=== PATIENT | female | born 1990 | race Caucasian/White ===

== ENCOUNTER 2020-11-24 19:24 | Emergency (ER) | payer OTHER ==
[~2020-11-24] VITALS: Ht 160 cm; Wt 54.4 kg
--- NOTE | 2020-11-24 22:13 | NUR ---
PT AMBULATED TO ER WITH C/O CP THAT STARTED 5 DAYS AGO. A/O X4, NO SOB OR LABORED BREATHING, AFEBRILE. NO N/V. CLEAR SPEECH, COMPLETE SENTENCES. NO DEFICITS ON ANY EXTREMITIES. DR. VITALE AT BEDSIDE, MSE IN PROGRESS.
--- NOTE | 2020-11-24 22:30 | NUR ---
LAB AT BEDSIDE.
[2020-11-24 22:53] LABS: HEMATOCRIT 41.7 % (31.2-41.9); MEAN CORPUSCULAR HEMOGLOBIN 30.5 uug (24.7-32.8); MEAN CORPUSCULAR VOLUME 91.2 fL (75.5-95.3); PLATELET COUNT (AUTO) 217 K/uL (179-408)
[2020-11-24 23:04] LABS: ALANINE AMINOTRANSFERASE 15 U/L (14-59); ALKALINE PHOSPHATASE 69 U/L (50-136); ASPARTATE AMINOTRANSFERASE 15 U/L (15-37); BILIRUBIN,DIRECT < 0.1 mg/dL (0.0-0.2); BILIRUBIN,TOTAL 0.6 mg/dL (0.2-1.0); CARBON DIOXIDE 30 mmol/L (21-32); CHLORIDE 106 mmol/L (98-107); CREATININE 0.7 mg/dL (0.6-1.3); GLUCOSE 86 mg/dL (74-106); POTASSIUM 3.9 mmol/L (3.5-5.1); TOTAL PROTEIN, SERUM 7.6 g/dL (6.4-8.2); UREA NITROGEN, BLOOD 7 mg/dL (7-18)
[2020-11-24] MEDS ORDERED: LORA0.5T48 GT (23:37)
--- NOTE | 2020-11-24 23:51 | NUR ---
Patient discharged to home in stable condition. A/O x4, denies any pain/discomfort upon discharge. Written and verbal after care instructions given. Patient verbalizes understanding of instructions. Stressed follow up or return to ER for worsening s/s. Steady gait.
[2020-11-24 23:52] VITALS: BP 110/68
== END 2020-11-24 23:53 | disposition home or self-care (01) ==
LOC: ER 19:24
DX: R00.2 Palpitations (principal); F41.9 Anxiety disorder, unspecified; R00.1 Bradycardia, unspecified
CPT/HCPCS: 36415; 83735; 85025; A4663

== ENCOUNTER 2024-02-06 16:05 | Emergency (ER) | payer OTHER ==
[~2024-02-06] VITALS: Ht 160 cm; Wt 54.4 kg
[~2024-02-06 16:05] MED LIST: LORA0.5T48 GT
[2024-02-06 16:26] LABS: BASOPHILS # (AUTO) 0.1 K/UL (0.0-0.2); BASOPHILS % (AUTO) 1.4 % (0.0-2.0); EOSINOPHILS # (AUTO) 0.2 K/uL (0.0-0.7); EOSINOPHILS % (AUTO) 3.5 % (0.0-7.0); HEMATOCRIT 39.5 % (31.2-41.9); HEMOGLOBIN 13.3 g/dL (10.9-14.3); LYMPHOCYTES # (AUTO) 1.6 K/uL (0.8-4.8); LYMPHOCYTES % (AUTO) 32.5 % (20.5-51.5); MEAN CORPUSCULAR HEMOGLOBIN 30.7 uug (24.7-32.8); MEAN CORPUSCULAR HGB CONC 34 g/dL (32.3-35.6); MEAN CORPUSCULAR VOLUME 91.3 fL (75.5-95.3); MONOCYTES # (AUTO) 0.4 K/uL (0.1-1.30); MONOCYTES % (AUTO) 8.7 % (0.0-11.0); NEUTROPHILS # (AUTO) 2.7 K/uL (1.8-8.9); NEUTROPHILS % (AUTO) 53.9 % (38.5-71.5); PLATELET COUNT (AUTO) 230 K/uL (179-408); RED BLOOD CELL COUNT(AUTO) 4.33 MIL/uL (3.63-4.92); RED CELL DISTRIBUTION WIDTH 13.7 % (12.3-17.7); WHITE BLOOD COUNT (AUTO) 4.9 K/uL (3.8-11.8)
[2024-02-06 16:42] LABS: CALCIUM 9.2 mg/dL (8.5-10.1); CARBON DIOXIDE 26 mmol/L (21-32); CHLORIDE 105 mmol/L (98-107); CREATININE 0.7 mg/dL (0.6-1.3); GLUCOSE 97 mg/dL (74-106); POTASSIUM 3.9 mmol/L (3.5-5.1); SODIUM SERUM 140 mmol/L (136-145); UREA NITROGEN, BLOOD 9 mg/dL (7-18)
[2024-02-06 16:44] LABS: DIFFERENTIAL COMMENT 1
[2024-02-06] MEDS ORDERED: LIDOCAINE 5% PATCH TD ONE (16:47)
[2024-02-06] MEDS ORDERED: KETOROLAC TROMETHAMINE 15 MG INJ ONE (16:47)
[2024-02-06] MEDS: LIDOCAINE 5% PATCH TD ONE (16:52)
[2024-02-06] MEDS: KETOROLAC TROMETHAMINE 15 MG INJ IM ONE (16:52)
[2024-02-06 17:14] VITALS: BP 108/69; TEMP 98.2; O2SAT 99
== END 2024-02-06 17:16 | disposition home or self-care (01) ==
LOC: ER 16:05
DX: M54.6 Pain in thoracic spine (principal); F41.9 Anxiety disorder, unspecified; F17.200 Nicotine dependence, unspecified, uncomplicated
CPT/HCPCS: 99285; 71045; 80048; 85025; 85379; 84484; 36415; 93005; 96372; J1885; A4606; A4663